=== PATIENT | female | born 1955 | race Caucasian/White ===

== ENCOUNTER 2018-11-21 08:00 | Outpatient (CLI) | payer BC ==
[2009-06-14 11:50] VITALS: BMI 37.6
== END 2018-11-21 23:59 | disposition home or self-care (01) ==
LOC: D.MAMMO 08:00
PROVIDERS: ATTEND Family Medicine
DX: Z12.31 Encounter for screening mammogram for malignant neoplasm of breast (principal)

== ENCOUNTER 2020-08-08 14:14 | Outpatient (CLI) | payer BC ==
[2009-06-14 11:50] VITALS: BMI 37.6
== END 2020-08-08 23:59 | disposition home or self-care (01) ==
LOC: D.MAMMO 14:14
PROVIDERS: ATTEND Family Medicine
DX: N64.4 Mastodynia (principal)